=== PATIENT | male | born 1950 ===

== ENCOUNTER 2017-03-15 21:38 | Emergency (ER) | payer MEDICARE, MEDICAID ==
[2017-03-15] MEDS ORDERED: AMIODARONE HCL 150 MG/3 ML VIAL IV ONE (21:59)
[2017-03-15 22:03] LABS: BASOPHIL# 0.1 X 10^3uL (0.0-0.1); BASOPHILS 0.9 % (0.0-2.0); EOSINOPHILS 0.2 % (0.0-6.0); HEMATOCRIT 53.7 % (42.0-54.0); HEMOGLOBIN 18.1 g/dL (14.0-18.0); LYMPHOCYTES 7.9 % (20.0-40.0); MEAN CELL VOLUME 91.1 fL (80.0-100.0); MEAN CORPUS. HGB CONCENTRATION 33.8 g/dL (32.0-36.0); MEAN CORPUSCULAR HEMOGLOBIN 30.8 pg (29.0-35.0); MEAN PLATELET VOLUME 9.1 fL (7.4-10.4); MONOCYTES 7.3 % (2.0-10.0); MONOCYTES# 0.9 X 10^3uL (0.2-1.0); NEUTROPHILS 83.7 % (54.0-75.0); NEUTROPHILS# 10.1 X 10^3uL (2.6-6.7); PLATELET COUNT 194 X 10^3uL (130-440); RED BLOOD COUNT 5.89 X 10^6uL (4.20-6.10); RED CELL DISTRIBUTION WIDTH 14.9 % (11.5-14.5); WHITE BLOOD COUNT 12.1 X 10^3uL (3.9-10.7)
[2017-03-15 22:12] LABS: BLOOD UREA NITROGEN 18 mg/dL (9-20); CALCIUM 8.7 mg/dL (8.4-10.2); CHLORIDE 98 mmol/L (98-107); CREATININE 0.8 mg/dL (0.7-1.3); EST GLOMERULAR FILTRATION RATE > 60 mL/min; MAGNESIUM 1.4 mg/dL (1.6-2.3); POTASSIUM 4.3 mmol/L (3.5-5.1); SODIUM 133 mmol/L (137-145)
[2017-03-15 22:14] LABS: INR 2.2
[2017-03-15] MEDS ORDERED: IPRATROPIUM/ALBUTEROL 0.5/3 MG 3 ML AMPUL.NEB INHALATION ONE (22:18)
[2017-03-15 22:24] LABS: GLUCOSE 208 mg/dL (70-100); TROPONIN I < 0.012 ng/mL (0.00-0.034)
--- NOTE | 2017-03-15 23:30 | ER PHYSICIAN DOCUMENTATION ---
Physician Documentation [facility] Name:Ronn Massey Age:66 yrs Sex:Male :1950 Arrival Date:03/15/2017 Time:21:38 BedTrauma-C Private MD:Mely Torres ED, Chris Disposition: 03/15 22:33 Critical Care:. Chart complete. cd Disposition: 03/15/17 22:35 Transfer ordered to [facility]. Diagnosis are Ventricular Tachycardia, Premature Ventricular Contractions (PVC) - : Triplets and Couplets, COPD Exacerbation, Hypoxia. - Reason for transfer: Higher level of care. - Accepting physician is Dr.Emily Cummins, [facility] Ballistic Expert. - Condition is Serious. - Problem is new. - Symptoms have improved. COBRA Form completed? Yes Transfer - Mode of Transportation Helicopter HPI: 22:13 This 66 yrs old Male presents to ER via Private Vehicle with complaints of cd Shortness Of Breath. 22:13 The patient has shortness of breath at rest, with light activity, that occurred at cd home, and the patient has a history of COPD, CHF, lung disease. Onset: The symptom(s)/episode began/occurred acutely, 2 day(s) ago, and became worse today. Duration: The symptoms are continuous, and are steadily getting worse. Associated signs and symptoms: Pertinent positives: diaphoresis, Pertinent negatives: chest pain, productive cough, dizziness, fever, hemoptysis, nausea, vomiting. Severity of symptoms: At their worst the symptoms were moderate in the emergency department the symptoms are unchanged. Risk Factors Risk factors for coronary artery disease include: A history of diabetes. A history of high cholesterol. A history of hypertension. This patient is a smoker. The patient has experienced a previous episode, when he had pneumonia. Historical: - Allergies: Morphine; - Home Meds: 1. aspirin 81 mg oral tab 1 tab once daily 2. atorvastatin 80 mg oral tab 1 tab once daily 3. carvedilol 3.125 mg oral tab 1 tab every 12 hours with food 4. Advair Diskus 100-50 mcg/dose inhalation dsdv 1 puff 2 times per day approximately 12 hours apart 5. Atrovent Inhl 6. Nitroglycerin SL 7. spironolactone 25 mg oral tab 1 tab once daily 8. omega-3 fatty acids 1,000 mg oral cap 9. warfarin 5 mg oral tab 1.5 tabs once daily 10. lisinopril 10 mg oral tab 1 tab once daily 11. metformin 500 mg oral tab 2 tabs 2 times per day 12. albuterol sulfate 2.5 mg /3 mL (0.083 %) inhalation nebu 3 mL BID - PMHx: HYPERTENSION; CHF; COPD; Hypoxia (October 20, 2015); Pneumonia Bacterial (October 20, 2015); Dehydration (October 20, 2015); Gastroenteritis (October 20, 2015); - PSHx: AAA REPAIR; - Tetanus: unknown. - Ebola Screening: : Patient negative for fever greater than or equal to 101.5 degrees Fahrenheit, and additional compatible Ebola Virus Disease symptoms. Patient denies exposure to infectious person. Patient denies travel to an Ebola-affected area in the 21 days before illness onset. No symptoms or risks identified at this time. . - Immunization history: Unable to Obtain. - Social history: Smoking status: Patient uses tobacco products and is smoker, current status unknown. ROS: 22:17 ENT: Negative for injury, pain, epistaxis and discharge. cd 22:17 Neck: Negative for injury, pain, stiffness and swelling. cd Back: Negative for injury, pain or muscle spasms. : Negative for injury, bleeding, discharge, swelling, dysuria, frequency or urgency. 22:17 MS/Extremity: Negative for injury, deformity, calf tenderness, pain or coldness. + 2+ edema 22:17 Constitutional: Positive for poor PO intake, Negative for body aches, chills, fever. 22:17 Cardiovascular: Positive for edema, orthopnea, palpitations, Negative for chest pain. 22:17 Respiratory: Positive for cough, orthopnea, shortness of breath, wheezing. 22:17 Abdomen/GI: Negative for abdominal pain, nausea, vomiting, diarrhea, hematemesis, black/tarry stool, rectal bleeding. 22:17 Skin: Positive for Cyanotic and tray at presentation. 22:17 Neuro: Positive for headache, Negative for altered mental status, loss of consciousness, seizure activity, syncope. 22:17 All other systems are negative. Exam: Eyes: Pupils equal round and reactive to light, extra-ocular motions intact. Lids and lashes normal. Conjunctiva and sclera are non-icteric and not injected. Cornea within normal limits. Periorbital areas with no swelling, redness, or edema. ENT: Nares patent. No nasal discharge, no septal abnormalities noted. Tympanic membranes are normal and external auditory canals are clear. Oropharynx with no redness, swelling, or masses, exudates, or evidence of obstruction, uvula midline. Mucous membranes moist. 22:20 Neck: Trachea midline, no thyromegaly or masses palpated, and no cervical cd lymphadenopathy. Supple, full range of motion without nuchal rigidity, or vertebral point tenderness. No Meningismus. 22:20 Back: No spinal tenderness. No costovertebral tenderness. Full range of motion. Back: No spinal tenderness. No costovertebral tenderness. Full range of motion. 22:20 Neuro: Awake and alert, GCS 15, oriented to person, place, time, and situation. Cranial nerves II-XII grossly intact. Motor strength 5/5 in all extremities. Sensory grossly intact. Cerebellar exam normal. Normal gait. 22:20 Constitutional: The patient appears alert, awake, tray and cyanotic. O2 sat 72% RA on presentation 22:20 Cardiovascular: Rate: tachycardic, actual rate is 138 bpm, Rhythm: irregular, Pulses: thready, weak. 22:20 Respiratory: the patient does not display signs of respiratory distress, Respirations: labored breathing, that is mild, prolonged exhalation, that is mild, Breath sounds: rales, are not appreciated, rhonchi, are not appreciated, wheezing, that is moderate, is scattered. 22:20 Musculoskeletal/extremity: ROM: no acute changes, Circulation is intact in all extremities. Sensation intact. 22:20 Skin: Appearance: Color: tray, cyanotic, Temperature: cool. Vital Signs: 21:49 BP 93 / 59 (auto/); rh 21:51 Pulse 107 MON; Resp 32; Pulse Ox 91% ; rh 21:56 Pulse 106 MON; Resp 30; Pulse Ox 91% ; rh 22:01 Pulse 106 MON; Resp 27; Pulse Ox 90% ; rh 22:05 BP 89 / 51 (auto/); rh 22:06 Pulse 103 MON; Resp 27; Pulse Ox 93% ; rh 22:09 BP 88 / 57 (auto/); rh 22:11 Pulse 100 MON; Resp 23; Pulse Ox 96% ; rh 22:16 Pulse 95 MON; Resp 16; Pulse Ox 97% ; rh 22:21 BP 93 / 63 (auto/); rh 22:21 Pulse 127 MON; Resp 15; Pulse Ox 95% ; rh Mando Coma Score: 22:20 Eye Response: spontaneous(4). Verbal Response: oriented(5). Motor Response: obeys cd commands(6). Total: 15. MDM: 21:45 Data interpreted: Pulse oximetry: on room air is 72 %. Interpretation: hypoxia. Plan: cd O2 by NC applied. 21:49 ED course: Rhythm Strip: 21:45 PM Ventricular Tachycardia Rhythm Strip: 22:21 PM Run of cd Ventricular Tachycardia. 21:51 Patient medically screened. cd 21:55 Differential diagnosis: Anemia asthma, CHF exacerbation, Chronic Obstructive Pulmonary cd Disease Myocardial Infarction pneumonia, pulmonary edema, Pulmonary Embolism Sepsis Unstable Angina. 22:10 Antibiotic administration: Not indicated. Data reviewed: vital signs, nurses notes, old cd medical records, EKG, radiologic studies, and as a result, I will. 22:15 Physician consultation: Lidya Cummins MD Ballistic Expert was called at 22:05, was contacted cd at 22:10, regarding admission, to the ICU, consult, patient's condition, need to evaluate the patient as soon as possible, and will see patient in unit, shortly, after a discussion of the case, a recommendation for transfer for higher level of care is made. 22:20 ED course: The patient had been sent in the the ED by Dea Torres PARTS IDENTIFIER because of cd worsening SOB, cough, possible pneumonia and right sided headache. Upon arrival his BP was 93 systolic and HR 138 - 165/minute. When placed on the monitor by me, he was found to be in Ventricular Tachycardia. He was immediately transferred to Trauma C, 2 large bore IV's started and Amiodarone 150 mg IV was started ZITA over 15 minutes. He remained stable, awake and without chest pain. He reports he has had A. Fib with Ablation, Hx of PVC's, Triplets and couplets in the past. He has never heard of Ventricular Tachycardia. He is a Diabetic on Glucophage and has had CAD with stents in the past. He also has a Hx of CHF and COPD and was recently admitted 6 months ago for LLL Pneumonia. He is on Coreg. . 22:25 ED course: Once moved to Trauma C he was back to a ST at 107/minute with Triplets and cd Couplets. His BP dropped to 73 Systolic after 25 mg Amiodarone IV was given. It was stopped, he was given a NS 1 liter IV Bolus and that brought his BP back up. Then he was started ob Amiodarone Drip at 1 mg/min IVPB which he tolerated. He was given a Duoneb and 4 baby ASA. He felt much improved after this treatment. Full report was given to Lidya Pierre MD the [facility] Ballistic Expert on-call. She accepted the patient and agreed with the treatment. Full report was given to the Helicopter ICU nurse. The patient was much improved at time of discharge. His last Systolic BP was 112. Color good, mentation normal. Prior to the helicopter arrival he did have another V-Tach episode of 15 beats that quickly subsided on its own.. 22:32 Counseling: I had a detailed discussion with the patient and/or guardian regarding: the cd historical points, exam findings, and any diagnostic results supporting the discharge/admit diagnosis, lab results, radiology results, the need to transfer to another facility, for higher level of care, [facility] does not immediately have the required specialist. 22:33 Medication response: The patient's symptoms have improved, Duoneb and Amiodarone Drip. 03/16 13:10 EKG attached oh1 13:10 Other attached oh1 03/15 22:20 Order name: CBC AUTO DIF, MDIF/RMOR IF IND; Complete Time: 22:31 EDNE 03/15 22:31 Interpretation: Abnormal: WHITE BLOOD COUNT 12.1; HEMOGLOBIN 18.1; HEMATOCRIT 53.7; cd NEUTROPHILS 83.7; Polycythemia, Elevated WBC with Left shift. 03/15 22:20 Order name: PROTIME/INR; Complete Time: 22:31 EDMS 03/15 22:31 Interpretation: Abnormal: INR 2.2; Elevated INR / On Coumadin. 03/15 22:26 Order name: BASIC METABOLIC PANEL; Complete Time: : EDMS 03/15 22:31 Interpretation: Normal Except: CARBON DIOXIDE 21; GLUCOSE 208; Hyperglycemia. 03/15 22:26 Order name: MAGNESIUM; Complete Time: 22:31 EDNE 03/15 22:31 Interpretation: Abnormal: MAGNESIUM 1.4; Hypomagnesemia. 03/15 22:26 Order name: BNP,NT-PRO; Complete Time: 22:31 EDMS 03/15 22:31 Interpretation: Abnormal: BNP,NT-PRO 549; elevated. 03/15 22:26 Order name: TROPONIN I; Complete Time: 22: [facility] 03/15 22:31 Interpretation: Normal. 03/15 22:29 Order name: LACTATE; Complete Time: 22:31 [facility] 03/15 22:32 Interpretation: Normal: LACTATE 1.6. 03/16 22:17 Order name: BLOOD CULTURE [facility] 03/16 22:17 Order name: BLOOD CULTURE [facility] 03/15 22:03 Order name: CHEST; [place] [id number] [facility] 03/16 10:07 Order name: CHEST; [place] [id number] [facility] 03/15 21:52 Order name: 12-lead EKG; Complete Time: 22:13 03/15 21:52 Order name: Iv Saline Lock; Complete Time: 22:13 03/15 21:52 Order name: Place Patient On Monitor; Complete Time: 22:13 03/15 21:52 Order name: Pulse Ox Continuous; Complete Time: 22: 03/15 21:52 Order name: Oxygen; Complete Time: 22:13 cd EC/23 21:49 Rate is 107 beats/min. Rhythm is regular. VT interval is normal. QRS interval is cd prolonged. QT interval is prolonged. No Q waves. T waves are Inverted in lead aVL. ST Segment is depressed in leads II, III, aVF, 1-2mm. ST Segment is depressed in leads V5, V6. Clinical impression: Sinus tachycardia and ST, ST Depression in leads II, III and aVF and V5 and V6 > Probable Infero-lateral ischemia. Poor anterior R-wave progression. Possible Anterior DC Age Indeterminate. Interpreted by me. Dispensed Medications: Completed: NS 0.9% 500 ml IV at bolus once 21:50 Drug: NS 0.9% 500 ml; Route: IV; Rate: bolus; Site: left antecubital; rh 22:23 Follow up: IV Status: Completed infusion; IV Intake: 500ml rh 21:57 Drug: amiodarone 25 mg; Route: IVP; Infused Over: 20 mins; Site: right antecubital; 23:32 Follow up: Response: Blood pressure is lowered rs 22:10 Drug: DuoNeb (Albuterol 2.5 mg, Atrovent 0.5 mg); 3 ml; Route: Nebulizer; rh 22:38 Follow up: Response: Wheezing diminished rh 22:16 Drug: amiodarone 1 mg/min; Route: IVPB; Infused Over: 6 continuous; Site: right rh antecubital; 22:38 Follow up: IV Status: Infusing continued upon transfer rh 22:17 Drug: Aspirin Chewable Tablet 324 mg; Route: PO; rh 22:38 Follow up: Response: No adverse reaction rh Critical care time excluding procedures: :33 Critical care time: Bedside Care: 45 minutes, Consultation: 10 minutes, Family cd Intervention: 5 minutes. Total time: 60 minutes Signatures: Yumiko Kirk RN RN rs Campbell, Sandy, RN RN sc1 Tyrone Bowling MD MD cd Hofsess, Rachel rh vogel, margaux mv
--- NOTE | 2017-03-15 23:30 | ER NURSING DOCUMENTATION ---
Nurse's Notes [facility] Name:Ronn Massey Age:66 yrs Sex:Male :1950 Arrival Date:03/15/2017 Time:21:38 BedTrauma-C Private MD:Mely Torres Diagnosis:Ventricular Tachycardia;Premature Ventricular Contractions (PVC)-: Triplets and Couplets;COPD Exacerbation;Hypoxia Presentation: 03/15 21:41 Acuity: AREN 2 rh 21:44 Presenting complaint: Patient states: Productive cough, increased SOB, hx of COPD and rs pneumonia. Transition of care: Home. Notified ED Physician of patient's arrival and CC Dr. oBwling notified. 21:44 Method Of Arrival: Private Vehicle rs Triage Assessment: 21:45 Cardiovascular: Capillary refill < 3 seconds Pulses are 1+ in right radial artery rs Reports fatigue, shortness of breath Denies. Respiratory: Respiratory effort is even, labored, shallow, Respiratory pattern is regular, symmetrical, Sputum is thin, clear Reports shortness of breath at rest on exertion cough that is productive, the patient has moderate shortness of breath. Derm: Skin is diaphoretic, Skin is pale, Skin temperature is warm. 22:14 General: Appears slender, uncomfortable, Behavior is cooperative, pleasant. rs 22:19 Pain: Denies pain. Neuro: No deficits noted. Level of Consciousness is awake, alert, rs Oriented to person, place, time, event, Reports weakness. Historical: - Allergies: Morphine; - Home Meds: 1. aspirin 81 mg oral tab 1 tab once daily 2. atorvastatin 80 mg oral tab 1 tab once daily 3. carvedilol 3.125 mg oral tab 1 tab every 12 hours with food 4. Advair Diskus 100-50 mcg/dose inhalation dsdv 1 puff 2 times per day approximately 12 hours apart 5. Atrovent Inhl 6. Nitroglycerin SL 7. spironolactone 25 mg oral tab 1 tab once daily 8. omega-3 fatty acids 1,000 mg oral cap 9. warfarin 5 mg oral tab 1.5 tabs once daily 10. lisinopril 10 mg oral tab 1 tab once daily 11. metformin 500 mg oral tab 2 tabs 2 times per day 12. albuterol sulfate 2.5 mg /3 mL (0.083 %) inhalation nebu 3 mL BID - PMx: HYPERTENSION; CHF; COPD; Hypoxia (October 20, 2015); Pneumonia Bacterial (October 20, 2015); Dehydration (October 20, 2015); Gastroenteritis (October 20, 2015); - PSHx: AAA REPAIR; - Tetanus: unknown. - Ebola Screening: : Patient negative for fever greater than or equal to 101.5 degrees Fahrenheit, and additional compatible Ebola Virus Disease symptoms. Patient denies exposure to infectious person. Patient denies travel to an Ebola-affected area in the 21 days before illness onset. No symptoms or risks identified at this time. . - Immunization history: Unable to Obtain. - Social history: Smoking status: Patient uses tobacco products and is smoker, current status unknown. Screenin:18 Infectious Disease Risk None. Abuse screen: Denies threats or abuse. Denies injuries rh from another. Nutritional screening: No deficits noted. Assessment: 21:45 Cardiovascular: Rhythm is pt moved from room 4 to Trauma C, MD at bedside. rs 22:00 Reassessment: PADS PLACED ON THE PATIENT . rh 22:00 Reassessment: [facility] CALLED TO TRANSPORT PATIENT TO [facility] . rh 22:15 Cardiovascular: Capillary refill < 3 seconds Pulses are 3+ in right radial artery. rs Derm: Skin is pink, warm & dry. 22:40 Reassessment: [facility] in the ED ARRIVAL . rh Vital Signs: 21:49 BP 93 / 59 (auto/); rh 21:51 Pulse 107 MON; Resp 32; Pulse Ox 91% ; rh 21:56 Pulse 106 MON; Resp 30; Pulse Ox 91% ; rh 22:01 Pulse 106 MON; Resp 27; Pulse Ox 90% ; rh 22:05 BP 89 / 51 (auto/); rh 22:06 Pulse 103 MON; Resp 27; Pulse Ox 93% ; rh 22:09 BP 88 / 57 (auto/); rh 22:11 Pulse 100 MON; Resp 23; Pulse Ox 96% ; rh 22:16 Pulse 95 MON; Resp 16; Pulse Ox 97% ; rh 22:21 BP 93 / 63 (auto/); rh 22:21 Pulse 127 MON; Resp 15; Pulse Ox 95% ; rh Mando Coma Score: 22:20 Eye Response: spontaneous(4). Verbal Response: oriented(5). Motor Response: obeys cd commands(6). Total: 15. ED Course: 21:40 Patient arrived in ED. em2 21:40 Mely Torres is Private Physician. em2 21:40 Notified ED Physician of patient's arrival and chief complaint. Dr. Bowling notified. Arm rs band placed on Bed in low position Call Light in Reach HOB Elevated Side rails up x2. Family accompanied patient. 21:41 Triage completed. rh 21:44 Yumiko Kirk, RN is Primary Nurse. rs 21:45 Inserted peripheral IV: 20 gauge in right in left antecubital area and blood collected. rh 21:45 Oxygen Oxygen administration via nasal cannula @ 2L/min. rh 21:48 EKG done. (by ED staff). Reviewed by Tyrone Bowling MD. rh 21:51 Tyrone Bowling MD is Attending Physician. cd 21:52 Port Xray Completed. maxine 22:00 surveillance monitor on. Pulse ox on. NIBP on. rh 22:03 CHEST; [place] [id number] In Process Unspecified. EDMS 22:18 Valuables Remains with patient Patient has correct armband on for positive rh identification. Placed in gown. Bed in low position. Call light in reach. Side rails up X 1. 22:30 Noise minimized. Verbal reassurance given. rs 03/16 13:10 EKG attached sc1 13:10 Other attached sc1 Administered Medications: Completed: NS 0.9% 500 ml IV at bolus once 03/15 21:50 Drug: NS 0.9% 500 ml; Route: IV; Rate: bolus; Site: left antecubital; rh 22:23 Follow up: IV Status: Completed infusion; IV Intake: 500ml rh 21:57 Drug: amiodarone 25 mg; Route: IVP; Infused Over: 20 mins; Site: right antecubital; mv 23:32 Follow up: Response: Blood pressure is lowered rs 22:10 Drug: DuoNeb (Albuterol 2.5 mg, Atrovent 0.5 mg); 3 ml; Route: Nebulizer; rh 22:38 Follow up: Response: Wheezing diminished rh 22:16 Drug: amiodarone 1 mg/min; Route: IVPB; Infused Over: 6 continuous; Site: right rh antecubital; 22:38 Follow up: IV Status: Infusing continued upon transfer rh 22:17 Drug: Aspirin Chewable Tablet 324 mg; Route: PO; rh 22:38 Follow up: Response: No adverse reaction rh Intake: 22:23 IV: 500ml; Total: 500ml. rh Outcome: 22:35 ER care complete, transfer ordered by . cd 22:56 Transferred: Patient will be transferred to: [facility]. Facility rs Acceptance Time: March 15, 2017 at 22:30 Patient's face sheet was faxed to accepting facility. Face Sheet included patient's name, address, age, gender, contact information and insurance information. Patient will be transported by: [facility]. Report called to: [facility] Nurse and Physician Charting and Notes were sent to Accepting Facility. All tests and/or procedures with results, if applicable, were sent to accepting facility. 22:56 critical 22:56 Report given to 22:56 Instructed on need for transfer Demonstrated understanding of 23:16 Report given to Anna ADAMES at [facility] stepdown unit. rs 23:29 Patient left the ED. rs Signatures: Dispatcher [employer] EDMS Yumiko Kirk RN RN rs Caitlin Chawla RN RN sc1 Tyrone Bowling MD MD cd Abbott, Emily Zee-reg, Alexa-reg em2 Radha Arreola margaux mv
--- NOTE | 2017-03-16 07:21 | RADIOLOGY REPORT ---
A limited single portable view of the chest is compared with prior examination dated 10/20/2015. The heart and vessels are stable and unremarkable. The right lung field is clear. Scarring versus infiltrate is noted at the left lung base. The left lung is otherwise clear. No fluid or pneumothorax is seen. IMPRESSION: Scarring versus infiltrate at the left lung base. MTDD
== END 2017-03-15 23:30 | disposition short-term general hospital (02) ==
LOC: ER 21:38
DX: I47.2 Ventricular tachycardia (principal); I49.3 Ventricular premature depolarization; J44.1 Chronic obstructive pulmonary disease with (acute) exacerbation; R60.0 Localized edema; R23.0 Cyanosis; R51 Headache; I95.9 Hypotension, unspecified; F17.210 Nicotine dependence, cigarettes, uncomplicated; E11.65 Type 2 diabetes mellitus with hyperglycemia; I10 Essential (primary) hypertension; E78.00 Pure hypercholesterolemia, unspecified; I50.9 Heart failure, unspecified; I25.10 Atherosclerotic heart disease of native coronary artery without angina pectoris; Z95.5 Presence of coronary angioplasty implant and graft; Z79.82 Long term (current) use of aspirin; Z79.899 Other long term (current) drug therapy; Z79.01 Long term (current) use of anticoagulants; Z87.01 Personal history of pneumonia (recurrent); Z99.81 Dependence on supplemental oxygen; E83.42 Hypomagnesemia
CPT/HCPCS: 71010; 80048; 83605; 83735; 83880; 84484; 85025; 85610; 87040; 93005; 93010; 93042; 94640; 96365; 96375; 99285; 99291; J0282; J7620